=== PATIENT | female | born 1990 | race Caucasian/White ===

== ENCOUNTER 2018-03-18 14:05 | Outpatient (CLI) | payer OTHER ==
[2018-03-18 15:17] LABS: ADD UMIC NO; UR ASCORBIC ACID NEGATIVE (NEGATIVE); UR BILIRUBIN (Dip) NEGATIVE (NEGATIVE); UR BLOOD (Dip) NEGATIVE (NEGATIVE); UR CLARITY SLIGHTLY CLOUDY (CLEAR); UR COLOR YELLOW (YELLOW); UR GLUCOSE (Dip) NEGATIVE (NEGATIVE); UR KETONES (Dip) NEGATIVE (NEGATIVE); UR LEUKOCYTE ESTERASE (Dip) NEGATIVE Leu/ul (NEGATIVE); UR NITRITE (Dip) NEGATIVE (NEGATIVE); UR RBC 1 /HPF (0-5); UR SPECIFIC GRAVITY (Dip) 1.014 (1.003-1.030); UR SQUAMOUS EPITHELIAL CELL FEW /HPF (FEW); UR TOTAL PROTEIN (Dip) NEGATIVE (NEGATIVE); UR UROBILINOGEN (Dip) 1+ mg/dL (NEGATIVE); UR WBC 3 /HPF (0-5)
== END 2018-03-18 16:40 | disposition home or self-care (01) ==
LOC: OBT 14:05 → L-D 14:07 → OBT 16:40
DX: O26.892 Other specified pregnancy related conditions, second trimester (principal); R10.10 Upper abdominal pain, unspecified; Z3A.23 23 weeks gestation of pregnancy
CPT/HCPCS: 76815; 76817; 81001; 81003

== ENCOUNTER 2018-05-17 12:29 | Inpatient (IN) | payer OTHER ==
[2018-05-17 13:55] LABS: ADD UMIC YES; UR ASCORBIC ACID NEGATIVE (NEGATIVE); UR BILIRUBIN (Dip) NEGATIVE (NEGATIVE); UR BLOOD (Dip) NEGATIVE (NEGATIVE); UR CLARITY CLEAR (CLEAR); UR COLOR YELLOW (YELLOW); UR GLUCOSE (Dip) NEGATIVE (NEGATIVE); UR KETONES (Dip) NEGATIVE (NEGATIVE); UR LEUKOCYTE ESTERASE (Dip) NEGATIVE Leu/ul (NEGATIVE); UR MUCUS MODERATE /HPF (NONE SEEN); UR NITRITE (Dip) NEGATIVE (NEGATIVE); UR RBC 1 /HPF (0-5); UR SPECIFIC GRAVITY (Dip) 1.023 (1.003-1.030); UR TOTAL PROTEIN (Dip) 2+ mg/dl (NEGATIVE); UR UROBILINOGEN (Dip) NEGATIVE (NEGATIVE); UR WBC 1 /HPF (0-5)
[2018-05-17 14:20] LABS: ADD MAN DIFF? NO
[2018-05-17 14:22] LABS: WHITE BLOOD COUNT 7.9 10^3/ul (4.8-10.8)
[2018-05-17 14:22] LABS: BASOPHILS % 0.5 % (0.0-2.0); EOSINOPHILS # 0.1 10^3/ul (0.0-0.5); EOSINOPHILS % 1.3 % (0.0-7.0); HEMATOCRIT 32.5 % (37.0-47.0); HEMOGLOBIN 10.7 g/dl (12.0-16.0); LYMPHOCYTES # 1.6 10^3/ul (0.8-2.9); MEAN CORPUSCULAR HEMOGLOBIN 28.6 pg (29.0-33.0); MEAN CORPUSCULAR HGB CONC 32.9 g/dl (32.0-37.0); MEAN CORPUSCULAR VOLUME 86.9 fl (82.0-101.0); MEAN PLATELET VOLUME 10.2 fl (7.4-10.4); MONOCYTE # 0.4 10^3/ul (0.3-0.9); MONOCYTES % 4.7 % (0.0-11.0); NEUTROPHIL # 5.8 10^3/ul (1.6-7.5); NEUTROPHILS % 72.7 % (39.0-77.0); NUCLEATED RED BLOOD CELLS% 0.5 /100WBC (0.0-0.0); PLATELET COUNT 278 10^3/UL (140-415); RED BLOOD COUNT 3.74 10^6/ul (4.20-5.40); RED CELL DISTRIBUTION WIDTH 14.4 % (11.5-14.5)
[2018-05-17 14:42] LABS: ANION GAP 13 (8-16); BILIRUBIN,TOTAL 0.3 mg/dl (0.2-1.3); INR 0.84; PARTIAL THROMBOPLASTIN TIME 26.7 Sec (25.0-35.0); PROTIME 11.6 Sec (11.9-14.9); PT RATIO 0.9
[2018-05-17 14:43] LABS: ALANINE AMINOTRANSFERASE 15 IU/L (13-69); ALBUMIN 3.3 g/dl (3.3-4.9); ALKALINE PHOSPHATASE 86 IU/L (42-121); ASPARTATE AMINO TRANSFERASE 19 IU/L (15-46); BILIRUBIN,INDIRECT 0.3 mg/dl (0-1.1); BLOOD UREA NITROGEN 8 mg/dl (7-20); CALCIUM 8.7 mg/dl (8.4-10.2); CARBON DIOXIDE 22 mmol/L (21-31); CHLORIDE 107 mmol/L (97-110); CREATININE 0.54 mg/dl (0.44-1.00); GLUCOSE 81 mg/dl (70-220); SODIUM 138 mmol/L (135-144); TOTAL PROTEIN 6.3 g/dl (6.1-8.1); URIC ACID 5.3 mg/dl (3.1-7.9)
[2018-05-17] MEDS: BETAMET NA PHOS/AC(6 MG/ML) 5ML INJ IM (16:09)
[2018-05-17] MEDS: LABETALOL 200 MG TAB PO ×2 (16:23→23:01)
[2018-05-17] MEDS ORDERED: LABETALOL 200 MG TAB PO ×2 (21:00)
[2018-05-18] MEDS: LABETALOL 200 MG TAB PO ×2 (08:56→21:12)
[2018-05-18] MEDS: BETAMET NA PHOS/AC(6 MG/ML) 5ML INJ IM (15:55)
[2018-05-19] MEDS: PRENATAL VITAMIN PO (08:30)
[2018-05-19] MEDS: LABETALOL 200 MG TAB PO ×2 (08:30→21:03)
[2018-05-19 09:58] LABS: COLLECTION PERIOD 24 hrs
[2018-05-19 11:14] LABS: VOLUME 1900 mls
[2018-05-19 11:17] LABS: 24HR URINE TOTAL PROTEIN > 600.0 mg/24hrs (42.0-225.0)
[2018-05-19 11:56] LABS: CREATININE 0.53 mg/dl (0.44-1.00)
[2018-05-19 12:16] LABS: COLLECTION PERIOD 24 hrs; CREATININE CLEARANCE 176.1 mls/min (84.0-162.0); CREATININE,URINE RANDOM 70.74 mg/dl (20-320); SCRET 0.53 mg/dl (0.44-1.00); VOLUME 1900 ml/24hrs
[2018-05-20] MEDS: LABETALOL HCL 20MG INJ IV ×3 (06:27→21:58)
[2018-05-20] MEDS ORDERED: LACTATED RINGER'S 1,000 ML IV (06:30)
[2018-05-20] MEDS: LACTATED RINGER'S 1,000 ML IV ×3 (06:38→23:51)
[2018-05-20] MEDS: MAGNESIUM SULFATE 4 GM/100 ML 100 ML IV (06:39)
[2018-05-20] MEDS: MAGNESIUM SULFATE 20 GM/500 ML 500 ML IV ×2 (07:27→19:40)
[2018-05-20] MEDS: PRENATAL VITAMIN PO (10:17)
[2018-05-20] MEDS: LABETALOL 200 MG TAB PO ×2 (10:18→20:58)
[2018-05-20 20:34] LABS: ADD MAN DIFF? NO
[2018-05-20 20:37] LABS: BASOPHILS % 0.4 % (0.0-2.0); EOSINOPHILS # 0.1 10^3/ul (0.0-0.5); EOSINOPHILS % 0.7 % (0.0-7.0); HEMATOCRIT 31.5 % (37.0-47.0); HEMOGLOBIN 10.3 g/dl (12.0-16.0); LYMPHOCYTES # 1.9 10^3/ul (0.8-2.9); LYMPHOCYTES % 18.1 % (15.0-51.0); MEAN CORPUSCULAR HEMOGLOBIN 29.3 pg (29.0-33.0); MEAN CORPUSCULAR HGB CONC 32.7 g/dl (32.0-37.0); MEAN CORPUSCULAR VOLUME 89.5 fl (82.0-101.0); MEAN PLATELET VOLUME 9.6 fl (7.4-10.4); MONOCYTE # 0.7 10^3/ul (0.3-0.9); MONOCYTES % 6.4 % (0.0-11.0); NEUTROPHIL # 7.3 10^3/ul (1.6-7.5); NEUTROPHILS % 70.5 % (39.0-77.0); NUCLEATED RED BLOOD CELLS # 0.2 10^3/ul (0.0-0.0); NUCLEATED RED BLOOD CELLS% 1.7 /100WBC (0.0-0.0); PLATELET COUNT 262 10^3/UL (140-415); RED BLOOD COUNT 3.52 10^6/ul (4.20-5.40); RED CELL DISTRIBUTION WIDTH 14.9 % (11.5-14.5)
[2018-05-20 20:37] LABS: WHITE BLOOD COUNT 10.3 10^3/ul (4.8-10.8)
[2018-05-20] MEDS: NITROGLYCERIN (SL) 0.4 MG TAB SL (20:49)
[2018-05-20 20:59] LABS: INR 0.87; PARTIAL THROMBOPLASTIN TIME 24.3 Sec (25.0-35.0); PROTIME 11.9 Sec (11.9-14.9); PT RATIO 0.9
[2018-05-20 21:05] LABS: ALANINE AMINOTRANSFERASE 10 IU/L (13-69); ALBUMIN 3.1 g/dl (3.3-4.9); ALBUMIN/GLOBULIN RATIO 1.03; ALKALINE PHOSPHATASE 84 IU/L (42-121); ANION GAP 11 (8-16); ASPARTATE AMINO TRANSFERASE 17 IU/L (15-46); BILIRUBIN,INDIRECT 0.2 mg/dl (0-1.1); BILIRUBIN,TOTAL 0.2 mg/dl (0.2-1.3); BLOOD UREA NITROGEN 11 mg/dl (7-20); CALCIUM 8.5 mg/dl (8.4-10.2); CARBON DIOXIDE 22 mmol/L (21-31); CHLORIDE 107 mmol/L (97-110); CREATINE KINASE 22 IU/L (23-200); CREATININE 0.64 mg/dl (0.44-1.00); GLUCOSE 104 mg/dl (70-220); POTASSIUM 3.7 mmol/L (3.5-5.1); SODIUM 136 mmol/L (135-144); TOTAL PROTEIN 6.1 g/dl (6.1-8.1); URIC ACID 5.3 mg/dl (3.1-7.9)
[2018-05-20 21:17] LABS: CK-MB < 0.22 ng/ml (0.0-2.4); TROPONIN-I < 0.010 ng/ml (0.000-0.120)
[2018-05-21] MEDS: LABETALOL HCL 20MG INJ IV ×2 (01:12→01:43)
[2018-05-21] MEDS ORDERED: CEFAZOLIN 2 GM/50 ML (PMX) 50 ML IVPB (01:36)
[2018-05-21] MEDS: FAMOTIDINE 20 MG INJ IV (01:56)
[2018-05-21] MEDS: METOCLOPRAMIDE 10 MG INJ IV (01:59)
[2018-05-21] MEDS: ONDANSETRON 4 MG INJ IV ×2 (02:00→05:20)
[2018-05-21] MEDS ORDERED: NALOXONE (0.4 MG/ML) INJ IV (03:30)
[2018-05-21] MEDS ORDERED: ZOLPIDEM 5 MG TAB PO (03:30)
[2018-05-21] MEDS ORDERED: IPRATROPIUM (NEB) 0.5 MG/2.5 ML AMP HHN (03:30)
[2018-05-21] MEDS ORDERED: HYDROmorphONE 0.5 MG/0.5 ML SYG IV (03:30)
[2018-05-21] MEDS ORDERED: ONDANSETRON 4 MG INJ IV (03:30)
[2018-05-21] MEDS ORDERED: FENTAnyl 50 MCG/ML VIAL IV (03:30)
[2018-05-21] MEDS ORDERED: HYDROmorphONE 1 MG/5 ML IV SYRINGE IV ×3 (03:30)
[2018-05-21] MEDS ORDERED: hydrALAzine 20 MG INJ IV (03:30)
[2018-05-21] MEDS ORDERED: DIPHENHYDRAMINE 50 MG INJ IV (03:30)
[2018-05-21] MEDS ORDERED: LABETALOL HCL 20MG INJ IV (03:30)
[2018-05-21] MEDS: CEFAZOLIN 2 GM/50 ML (PMX) 50 ML IV (04:10)
[2018-05-21] MEDS: KETOROLAC 30 MG INJ IV ×3 (04:25→23:58)
[2018-05-21] MEDS: OXYTOCIN 30 UNITS/LR 500 ML IV ×4 (04:29→13:21)
[2018-05-21] MEDS: HYDROmorphONE 0.5 MG/0.5 ML SYG IV ×2 (04:51→08:06)
[2018-05-21] MEDS: FENTAnyl 50 MCG/ML VIAL IV (05:25)
[2018-05-21] MEDS ORDERED: OXYTOCIN 10 UNIT INJ ×2 (06:11)
[2018-05-21] MEDS ORDERED: BUPIVACAINE 0.75%/DEXT (SPINAL) 2 ML INJ (06:11)
[2018-05-21] MEDS ORDERED: EPINEPHrine 1 MG INJ (06:11)
[2018-05-21] MEDS ORDERED: morphine SULFATE/PF (10 MG/10 ML) INJ (06:11)
[2018-05-21] MEDS ORDERED: OXYTOCIN 30 UNITS/LR 500 ML IV ×2 (06:11→06:30)
[2018-05-21] MEDS ORDERED: HYDROCODONE/APAP (5/325) TAB PO ×2 (06:30)
[2018-05-21] MEDS ORDERED: CARBOPROST 250 MCG INJ IM (06:30)
[2018-05-21] MEDS ORDERED: LANOLIN 7 GM TUBE TOP (06:30)
[2018-05-21] MEDS ORDERED: MISOPROSTOL 200 MCG TAB PR (06:30)
[2018-05-21] MEDS ORDERED: OXYCODONE/ACETAMINOPHEN (5/325) TAB PO ×2 (06:30)
[2018-05-21] MEDS ORDERED: METHYLERGONOVINE 0.2 MG INJ IM (06:30)
[2018-05-21] MEDS ORDERED: PROPOFOL 200 MG INJ (07:00)
[2018-05-21] MEDS: DIPHENHYDRAMINE 50 MG INJ IV (08:11)
[2018-05-21] MEDS: NIFEdipine (XL) 30 MG TAB PO (08:19)
[2018-05-21] MEDS ORDERED: LABETALOL 200 MG TAB PO (09:00)
[2018-05-21] MEDS: LABETALOL 200 MG TAB PO ×2 (09:55→20:51)
[2018-05-21] MEDS: CEFAZOLIN 1 GM/50 ML (PMX) 50 ML IVPB (10:58)
[2018-05-21] MEDS: LACTATED RINGER'S 1,000 ML IV (17:19)
[2018-05-21] MEDS: SENNA/DOCUSATE NA (8.6MG/50MG) TAB PO (20:51)
[2018-05-22] MEDS: LACTATED RINGER'S 1,000 ML IV (01:01)
[2018-05-22] MEDS ORDERED: OXYCODONE/ACETAMINOPHEN (5/325) TAB PO (02:15)
[2018-05-22] MEDS: CEFAZOLIN 1 GM/50 ML (PMX) 50 ML IVPB (04:30)
[2018-05-22] MEDS: IBUPROFEN 600 MG TAB PO ×4 (05:51→23:41)
[2018-05-22 08:09] LABS: ADD MAN DIFF? NO
[2018-05-22 08:13] LABS: BASOPHILS % 0.3 % (0.0-2.0); EOSINOPHILS # 0.2 10^3/ul (0.0-0.5); EOSINOPHILS % 2.1 % (0.0-7.0); HEMATOCRIT 31.4 % (37.0-47.0); HEMOGLOBIN 10.2 g/dl (12.0-16.0); LYMPHOCYTES # 1.7 10^3/ul (0.8-2.9); MEAN CORPUSCULAR HEMOGLOBIN 29.4 pg (29.0-33.0); MEAN CORPUSCULAR HGB CONC 32.5 g/dl (32.0-37.0); MEAN CORPUSCULAR VOLUME 90.5 fl (82.0-101.0); MEAN PLATELET VOLUME 9.8 fl (7.4-10.4); MONOCYTE # 0.4 10^3/ul (0.3-0.9); MONOCYTES % 4.8 % (0.0-11.0); NEUTROPHIL # 6.4 10^3/ul (1.6-7.5); NEUTROPHILS % 72.1 % (39.0-77.0); NUCLEATED RED BLOOD CELLS # 0.1 10^3/ul (0.0-0.0); PLATELET COUNT 234 10^3/UL (140-415); RED BLOOD COUNT 3.47 10^6/ul (4.20-5.40); RED CELL DISTRIBUTION WIDTH 14.8 % (11.5-14.5)
[2018-05-22 08:13] LABS: WHITE BLOOD COUNT 8.9 10^3/ul (4.8-10.8)
[2018-05-22] MEDS: SENNA/DOCUSATE NA (8.6MG/50MG) TAB PO ×3 (08:45→21:30)
[2018-05-22] MEDS: NIFEdipine (XL) 30 MG TAB PO (08:45)
[2018-05-22] MEDS: LABETALOL 200 MG TAB PO ×2 (08:46→21:24)
[2018-05-22] MEDS: OXYCODONE/ACETAMINOPHEN (5/325) TAB PO ×3 (12:50→23:48)
[2018-05-22] MEDS ORDERED: LACTATED RINGER'S 1,000 ML IV (19:00)
[2018-05-22] MEDS ORDERED: BUPIVACAINE 0.75%/DEXT (SPINAL) 2 ML INJ (19:09)
[2018-05-22] MEDS ORDERED: FENTAnyl 50 MCG/ML VIAL (19:10)
[2018-05-22] MEDS ORDERED: MIDAZOLAM 1 MG/ML 2 ML INJ (19:10)
[2018-05-22] MEDS ORDERED: KETOROLAC 30 MG INJ (19:48)
[2018-05-22] MEDS ORDERED: ONDANSETRON 4 MG INJ IV (20:30)
[2018-05-22] MEDS ORDERED: NALOXONE (0.4 MG/ML) INJ IV (20:30)
[2018-05-22] MEDS ORDERED: HYDROmorphONE 0.5 MG/0.5 ML SYG IV ×2 (20:30)
[2018-05-22] MEDS ORDERED: KETOROLAC 30 MG INJ IV (20:30)
[2018-05-22] MEDS ORDERED: DIPHENHYDRAMINE 50 MG INJ IV (20:30)
[2018-05-22] MEDS ORDERED: ZOLPIDEM 5 MG TAB PO (20:30)
[2018-05-22] MEDS: OXYTOCIN 30 UNITS/LR 500 ML IV (21:27)
[2018-05-22] MEDS ORDERED: HYDROCODONE/APAP (5/325) TAB PO ×2 (21:30)
[2018-05-22] MEDS ORDERED: CARBOPROST 250 MCG INJ IM (21:30)
[2018-05-22] MEDS ORDERED: METHYLERGONOVINE 0.2 MG INJ IM (21:30)
[2018-05-22] MEDS ORDERED: OXYTOCIN 30 UNITS/LR 500 ML IV (21:30)
[2018-05-22] MEDS ORDERED: LANOLIN 7 GM TUBE TOP (21:30)
[2018-05-22] MEDS ORDERED: MISOPROSTOL 200 MCG TAB PR (21:30)
[2018-05-23] MEDS: CEFAZOLIN 1 GM/50 ML (PMX) 50 ML IVPB (04:31)
[2018-05-23] MEDS: IBUPROFEN 600 MG TAB PO ×3 (05:56→17:28)
[2018-05-23 08:57] LABS: ADD MAN DIFF? NO
[2018-05-23 08:59] LABS: WHITE BLOOD COUNT 9.7 10^3/ul (4.8-10.8)
[2018-05-23 08:59] LABS: BASOPHILS % 0.3 % (0.0-2.0); EOSINOPHILS # 0.4 10^3/ul (0.0-0.5); EOSINOPHILS % 4.1 % (0.0-7.0); HEMATOCRIT 29.3 % (37.0-47.0); HEMOGLOBIN 9.2 g/dl (12.0-16.0); MEAN CORPUSCULAR HEMOGLOBIN 28.8 pg (29.0-33.0); MEAN CORPUSCULAR HGB CONC 31.4 g/dl (32.0-37.0); MEAN CORPUSCULAR VOLUME 91.6 fl (82.0-101.0); MEAN PLATELET VOLUME 10.2 fl (7.4-10.4); MONOCYTE # 0.5 10^3/ul (0.3-0.9); NEUTROPHIL # 6.7 10^3/ul (1.6-7.5); NEUTROPHILS % 69.3 % (39.0-77.0); NUCLEATED RED BLOOD CELLS% 0.4 /100WBC (0.0-0.0); PLATELET COUNT 208 10^3/UL (140-415); RED CELL DISTRIBUTION WIDTH 15.4 % (11.5-14.5)
[2018-05-23] MEDS: LABETALOL 200 MG TAB PO ×2 (09:22→21:22)
[2018-05-23] MEDS: NIFEdipine (XL) 30 MG TAB PO (09:22)
[2018-05-23] MEDS: SENNA/DOCUSATE NA (8.6MG/50MG) TAB PO ×2 (09:23→21:21)
[2018-05-23] MEDS: OXYCODONE/ACETAMINOPHEN (5/325) TAB PO (10:37)
[2018-05-23] MEDS ORDERED: CEFTRIAXONE 2 GM INJ IM (21:00)
[2018-05-24] MEDS: IBUPROFEN 600 MG TAB PO ×5 (00:11→23:57)
[2018-05-24 06:42] LABS: ADD MAN DIFF? NO
[2018-05-24 06:42] LABS: WHITE BLOOD COUNT 9.3 10^3/ul (4.8-10.8)
[2018-05-24 06:43] LABS: BASOPHILS % 0.4 % (0.0-2.0); EOSINOPHILS # 0.4 10^3/ul (0.0-0.5); EOSINOPHILS % 4.5 % (0.0-7.0); HEMATOCRIT 30.1 % (37.0-47.0); HEMOGLOBIN 9.6 g/dl (12.0-16.0); LYMPHOCYTES # 2.1 10^3/ul (0.8-2.9); LYMPHOCYTES % 22.9 % (15.0-51.0); MEAN CORPUSCULAR HEMOGLOBIN 28.7 pg (29.0-33.0); MEAN CORPUSCULAR HGB CONC 31.9 g/dl (32.0-37.0); MEAN CORPUSCULAR VOLUME 90.1 fl (82.0-101.0); MONOCYTE # 0.5 10^3/ul (0.3-0.9); MONOCYTES % 4.9 % (0.0-11.0); NEUTROPHIL # 6.1 10^3/ul (1.6-7.5); NEUTROPHILS % 65.8 % (39.0-77.0); NUCLEATED RED BLOOD CELLS # 0.1 10^3/ul (0.0-0.0); NUCLEATED RED BLOOD CELLS% 0.6 /100WBC (0.0-0.0); PLATELET COUNT 236 10^3/UL (140-415); RED BLOOD COUNT 3.34 10^6/ul (4.20-5.40); RED CELL DISTRIBUTION WIDTH 15.3 % (11.5-14.5)
[2018-05-24 07:03] LABS: ANION GAP 11 (8-16); BLOOD UREA NITROGEN 10 mg/dl (7-20); CALCIUM 8.7 mg/dl (8.4-10.2); CARBON DIOXIDE 28 mmol/L (21-31); CHLORIDE 105 mmol/L (97-110); CREATININE 0.54 mg/dl (0.44-1.00); GLUCOSE 89 mg/dl (70-220); MAGNESIUM 1.7 mg/dl (1.7-2.5); PHOSPHORUS 4.8 mg/dl (2.5-4.9); POTASSIUM 4.3 mmol/L (3.5-5.1); SODIUM 140 mmol/L (135-144)
[2018-05-24] MEDS: LABETALOL 200 MG TAB PO ×2 (08:46→22:25)
[2018-05-24] MEDS: SENNA/DOCUSATE NA (8.6MG/50MG) TAB PO ×2 (08:46→22:24)
[2018-05-24] MEDS: NIFEdipine (XL) 30 MG TAB PO (08:47)
[2018-05-24] MEDS ORDERED: DIPHTH/TET/ACEL PERTUSS (ADULT) 0.5 ML VIAL IM* (09:00)
[2018-05-24] MEDS: CEPHALEXIN 500 MG CAP PO ×2 (17:20→23:57)
[2018-05-24] MEDS: OXYCODONE/ACETAMINOPHEN (5/325) TAB PO (22:25)
[2018-05-25] MEDS: IBUPROFEN 600 MG TAB PO ×3 (05:32→13:48)
[2018-05-25] MEDS: CEPHALEXIN 500 MG CAP PO ×2 (05:32→13:48)
[2018-05-25] MEDS: DIPHTH/TET/ACEL PERTUSS (ADULT) 0.5 ML VIAL IM* (09:00)
[2018-05-25] MEDS: LABETALOL 200 MG TAB PO (09:26)
[2018-05-25] MEDS: SENNA/DOCUSATE NA (8.6MG/50MG) TAB PO (09:27)
[2018-05-25] MEDS: NIFEdipine (XL) 60 MG TAB PO (09:27)
[2018-05-25] MEDS: NA PHOSPHATE/BIPHOS 133 ML ENEMA PR (11:19)
[2018-05-26 15:11] LABS: RAPID PLASMA REAGIN NONREACTIVE (NR)
== END 2018-05-25 17:15 | disposition home or self-care (01) | DRG 766 ==
LOC: OBT 12:29 → L-D 05-20 08:54 → PP1 05-22 21:12 → L-D 12:39 → PP1 05-18 16:06 → L-D 05-21 03:23 → OBT 14:05 → PP1 05-21 06:20 → L-D 14:05
PROC: 10D00Z1 Extraction of Products of Conception, Low, Open Approach (ICD-10-PCS; principal; 2018-05-21 02:00)
DX: O10.02 Pre-existing essential hypertension complicating childbirth (principal); O34.211 Maternal care for low transverse scar from previous cesarean delivery; O90.2 Hematoma of obstetric wound; Z37.0 Single live birth; Z3A.36 36 weeks gestation of pregnancy
CPT/HCPCS: 76818; 80048; 80053; 81001; 82550; 82553; 82565; 82575; 83735; 84100; 84156; 84484; 84560; 85025; 85384; 85610; 85730; 86592; 88307; 93005; 99464